=== PATIENT | male | born 1980 | race African-American/Black ===

== ENCOUNTER 2017-01-11 07:36 | Observation (INO) | payer BC ==
[2017-01-04 10:34] LABS: HEMATOCRIT 44.1 % (37.9-51.0); HEMOGLOBIN 14.6 g/dL (13.5-17.0); HGB HCT DIFFERENCE -0.3; MEAN CORPUSCULAR HGB CONC 33.2 g/dL (32.0-36.0); MEAN CORPUSCULAR VOLUME 79 fl (80-97); RED BLOOD COUNT 5.62 10^6/uL (4.35-5.55); RED CELL DISTRIBUTION WIDTH 16.2 % (11.5-14.0); WHITE BLOOD COUNT 7.4 10^3/uL (4.0-10.5)
[2017-01-04 10:55] LABS: ANION GAP 14 (5-19); BLOOD UREA NITROGEN 13 mg/dL (7-20); CALCIUM 9.9 mg/dL (8.4-10.2); CARBON DIOXIDE 29 mmol/L (22-30); CHLORIDE 104 mmol/L (98-107); CREATININE RESULT 1.31 mg/dL (0.52-1.25); GLUCOSE 90 mg/dL (75-110); POTASSIUM 4.7 mmol/L (3.6-5.0); SODIUM 146.8 mmol/L (137-145)
[~2017-01-11 07:36] MED LIST: ACETAMINOPHEN 325 MG TABLET PO PRN; CEFAZOLIN 1 GM/D5W RTU 1 GM/50 ML RTUPB IV PRN; LACTATED RINGERS 1000 ML IV PRN; LIDOCAINE 0.5% INJ-PF (5 MG/ML) 50 ML SDV SUBCUT PRN
[2017-01-11] MEDS ORDERED: NEOSTIGMINE METHYLSULFATE 10 MG/10 ML VIAL ONE (08:45)
[2017-01-11] MEDS ORDERED: SUCCINYLCHOLINE CHLORIDE INJ 200 MG/10 ML VIAL ONE (08:45)
[2017-01-11] MEDS ORDERED: ONDANSETRON HCL INJ/PF 4 MG/2 ML SDV ONE (08:45)
[2017-01-11] MEDS ORDERED: DEXAMETHASONE SOD PHOSPHATE INJ 4 MG/1 ML VIAL ONE (08:45)
[2017-01-11] MEDS ORDERED: KETOROLAC TROMETHAMINE 60 MG/2 ML SDV ONE (08:45)
[2017-01-11] MEDS ORDERED: METOCLOPRAMIDE HCL INJ/PF 10 MG/2 ML SDV ONE (08:45)
[2017-01-11] MEDS ORDERED: ROCURONIUM BROMIDE INJ 50 MG/5 ML VIAL IV ONE (08:45)
[2017-01-11] MEDS ORDERED: GLYCOPYRROLATE INJ 0.4 MG/2 ML VIAL ONE (08:45)
[2017-01-11] MEDS ORDERED: BUPIVACAINE HCL 0.25 % INJ/PF (2.5 MG/1 ML) 30 ML VIAL ONE (13:25)
[2017-01-11] MEDS ORDERED: FENTANYL CITRATE INJ/PF 250 MCG/5 ML AMPULE ONE (16:27)
[2017-01-11] MEDS ORDERED: PROPOFOL INJ 200 MG/20 ML VIAL IV ONE (16:27)
[2017-01-11] MEDS ORDERED: MIDAZOLAM 2 MG/2 ML INJ ONE (16:27)
[2017-01-11] MEDS ORDERED: MORPHINE SULFATE 10 MG/ML INJ IV PRN ×2 (17:59→18:41)
[2017-01-11] MEDS ORDERED: PROMETHAZINE HCL INJ 25 MG/1 ML VIAL IV PRN ×2 (17:59)
[2017-01-11] MEDS ORDERED: FENTANYL CITRATE INJ/PF 100 MCG/2 ML AMPUL IV PRN ×3 (17:59)
[2017-01-11] MEDS ORDERED: DIPHENHYDRAMINE HCL 50 MG/ML VIAL IV PRN (17:59)
[2017-01-11] MEDS ORDERED: OXYCODONE-ACETAMINOPHEN 5-325 MG TABLET PO PRN ×3 (17:59→18:41)
[2017-01-11] MEDS ORDERED: MEPERIDINE HCL/PF INJ 25 MG/1 ML DISP.SYRIN IV PRN (17:59)
[2017-01-11] MEDS: FENTANYL CITRATE INJ/PF 100 MCG/2 ML AMPUL ONE ×2 (18:40→18:45)
[2017-01-11] MEDS ORDERED: RINGERS SOLUTION,LACTATED 1,000 ML IV PRN (18:41)
[2017-01-11] MEDS ORDERED: KETOROLAC TROMETHAMINE 60 MG/2 ML SDV IM PRN (18:41)
[2017-01-11] MEDS ORDERED: ONDANSETRON HCL INJ/PF 4 MG/2 ML SDV IV PRN (18:41)
--- NOTE | 2017-01-11 18:48 | PDOC DISCHARGE SUMMARY ---
Discharge Summary (SDC) - Discharge Final Diagnosis: Umbilical hernia Date of Surgery: 01/11/17 Discharge Date: 01/12/17 Condition: Good Treatment or Instructions: Underwent umbilical hernia repair laparoscopically with mesh. May discharge home in a.m. tomorrow when met discharge criteria. Follow-up with me in 2 weeks. Stay active at home but avoid strenuous activity. May shower tomorrow night. Keep Steri-Strips on. Prescriptions: Oxycodone HCl/Acetaminophen [Percocet 5-325 mg Tablet] 1 tab PO ASDIR PRN #25 tablet PRN Reason: Referrals: MARKELL THEODORE MD [ACTIVE STAFF] - Discharge Diet: As Tolerated Discharge Activity: Activity As Tolerated - Stay active but avoid strenuous activity. Report the Following to Your Physician Immediately: Vomiting, Fever over 101 Degrees, Unusual Bleeding, Redness, Drainage-Foul Smelling
--- NOTE | 2017-01-11 18:54 | Operative Report ---
Operative Report DATE OF SURGERY: 01/11/17 PREOPERATIVE DIAGNOSIS: Umbilical hernia POSTOPERATIVE DIAGNOSIS: 3 cm umbilical hernia with incarceration of omentum. OPERATION: Laparoscopic umbilical hernia repair with mesh SURGEON: MARKELL THEODORE ANESTHESIA: GA TISSUE REMOVED OR ALTERED: Incarcerated omentum removed but not submitted to pathology COMPLICATIONS: None ESTIMATED BLOOD LOSS: 20 cc INTRAOPERATIVE FINDINGS: Approximately 3 cm umbilical hernia with incarcerated omentum. PROCEDURE: Informed consent was obtained. Patient was brought to the operating room and placed on the operating room table in the supine position. After satisfactory induction of general anesthesia patient's abdomen was prepped and draped in usual sterile fashion. Periumbilical incision was made just above the umbilical hernia and dissection was carried down and the fascia was cut just above the hernia site and peritoneal cavity entered without difficulty. Villela trocar was inserted and pneumoperitoneum produced with good patient toleration. Two 5 mm trochars were placed in the left lateral abdomen. Two more 5 mm trochars were placed in the right lateral abdomen near the end of the case for the fixation of the mesh. Laparoscopic view demonstrated incarceration of omentum into a complex periumbilical hernia. The omentum was reduced and dissected free from the overlying hernia sac. The reduced omentum consisted of a wad of omentum and this wad of omentum was excised by using a LigaSure device and taken out through the Villela trocar site fascial defect using an Endobag. Hemostasis appeared to be good. fascial defect measured about 3 cm. The Villela trocar was removed and the defect was closed with the interrupted Vicryl sutures. A 15 x 15 cm piece of [employer]ien Parietex composite mesh was used for the repair. It was affixed at 4 quadrants using trans-fascial PDS sutures. It was affixed circumferentially using an absorbable tacking device. The insufflation pressures were reduced during the fixation. The mesh laid flat with excellent coverage. More central tacks were placed as well. Hemostasis appeared excellent. All trochars were removed under the direct vision of the laparoscope to ensure hemostasis. Marcaine was injected at the incision sites. All incisions were closed with subcuticular Monocryl sutures. Patient tolerated procedure well with no apparent complications and was taken to the recovery area in stable condition.
[2017-01-12 08:18] VITALS: BP 129/49
== END 2017-01-12 08:43 | disposition home or self-care (01) ==
LOC: OROUT 14:18 → 4S 14:18 → UNDOADMOB 14:18 → EDSTATUS 16:30 → 4S 18:50 → OROUT 19:40 → 4S 01-12 08:43 → OROUT 01-12 08:43
PROVIDERS: ADMIT Surgery; ATTEND Surgery
PROC: 0WUF4JZ Supplement Abdominal Wall with Synthetic Substitute, Percutaneous Endoscopic Approach (ICD-10-PCS; principal; 2017-01-11 16:30)
DX: K42.0 Umbilical hernia with obstruction, without gangrene (principal); E66.9 Obesity, unspecified; Z68.41 Body mass index [BMI] 40.0-44.9, adult
CPT/HCPCS: 49653; 36415; 85027; 80048; G0378 ×2; C1781; J2250; J0690; J3490; J1100; J1885; J3010 ×2; J2765; J0330; J2405; J2704; 752